=== PATIENT | female | born 1970 | race Caucasian/White ===

== ENCOUNTER 2017-07-13 11:23 | Emergency (ER) | payer SELFPAY ==
[2017-07-13 13:34] LABS: ABS Basophils 0 10^3/ul (0-0.2); ABS Eosinophils 0.2 10^3/ul (0-0.6); ABS Lymphocytes 1.1 10^3/ul (1.0-4.8); ABS Monocytes 0.7 10^3/ul (0-0.8); ABS Nucleated RBC 0 10^3/ul; Eosinophil % 4.5 % (0-6); Hematocrit 27 % (35-47); Hemoglobin 9.3 g/dl (12.0-16.0); Lymphocyte % 21.3 % (25-47); Mean Corpuscular HGB Conc 34 g/dl (31-36); Mean Corpuscular Hemoglobin 34 pg (27-31); Mean Corpuscular Volume 100 fL (80-97); Mean Platelet Volume 7.8 um3 (7.4-10.4); Nucleated Red Blood Cells % 0; Platelet Count 194 10^3/ul (150-450); Red Blood Count 2.73 10^6/ul (4.0-5.4); Red Cell Distribution Width 16 % (10.5-15); White Blood Count 5.1 10^3/ul (3.5-10.8)
[2017-07-13 13:42] LABS: INR 1.17 (0.77-1.02)
[2017-07-13 13:54] LABS: EGFR Non-African American 93.2 (>60)
[2017-07-13] MEDS ORDERED: Ondansetron INJ* 2 MG/ML VIAL IV ONE (14:11)
[2017-07-13] MEDS ORDERED: Morphine INJ* 10 MG/ML 1 ML CARPUJECT IV ONE ×2 (14:11→19:29)
--- NOTE | 2017-07-13 14:17 | RAD ---
HISTORY: Shortness of breath COMPARISONS: None VIEWS: 1: frontal portable view of the chest at 2:02 PM FINDINGS: LINES AND TUBES: None. CARDIOMEDIASTINAL SILHOUETTE: The cardiomediastinal silhouette is normal for portable technique. PLEURA: The costophrenic angles are sharp. No pleural abnormalities are noted. LUNG PARENCHYMA: The lungs are clear. ABDOMEN: The upper abdomen is clear. There is no subphrenic gas. BONES AND SOFT TISSUES: No bone or soft tissue abnormalities are noted. IMPRESSION: NO ACTIVE CARDIOPULMONARY DISEASE.
[2017-07-13] MEDS ORDERED: Ondansetron ODT TAB* 4 MG PO ONE (14:29)
[2017-07-13] MEDS ORDERED: Iohexol 300* (CONTRAST) 10 ML SDV IV ONE (14:37)
[2017-07-13] MEDS ORDERED: Morphine VIAL* 4 MG/ML VIAL (1 ml vial) IV ONE (14:58)
--- NOTE | 2017-07-13 16:26 | RAD ---
CLINICAL HISTORY: Abdominal pain, bloating COMPARISON: None TECHNIQUE: Multiple contiguous axial CT scans were obtained of the abdomen and pelvis after the administration of intravenous contrast. Coronal and sagittal multiplanar reformations are submitted for review. Oral contrast was administered. Delayed images were obtained through the abdomen and pelvis. FINDINGS: LUNG BASES: The lung bases are clear. LIVER: The liver is diffusely low in attenuation compared to the spleen. There are no focal hepatic parenchymal masses. The liver measures 20 cm in long axis. BILE DUCTS: There is no intrahepatic or extrahepatic biliary dilatation. GALLBLADDER: The gallbladder is normal, without pericholecystic inflammatory change. PANCREAS: The pancreas is normal, without mass or ductal dilatation. SPLEEN: The spleen measures 14 cm in long axis and 6.8 cm in thickness. UPPER GI TRACT: Evaluation of the gastrointestinal tract is limited by incomplete gastric distention. The upper GI tract is unremarkable. SMALL BOWEL AND MESENTERY: The small bowel is normal in contour, course, and caliber. There is no obstruction or dilatation. COLON: The colon is normal in contour, course, caliber. There is no pericolonic inflammatory change. ADRENALS: Normal bilaterally. KIDNEYS: The kidneys are normal in shape, size, contour, and axis. There is no hydronephrosis or nephrolithiasis. BLADDER: The bladder is smooth in contour. PELVIC ORGANS: There is prominence of the vasculature along the left broad ligament with enlargement of the ovarian vein on the left. AORTA: The aorta is normal. IVC: Unremarkable LYMPH NODES: There is no lymphadenopathy by size criteria. ABDOMINAL WALL: There is no evidence for abdominal wall hernia. BONES AND SOFT TISSUES: Unremarkable OTHER: There is a moderate to large amount of ascites. IMPRESSION: 1. ASCITES. 2. HEPATOMEGALY WITH FATTY INFILTRATION OF THE LIVER. 3. SPLENOMEGALY. 4. PROMINENCE OF THE VASCULATURE ALONG THE LEFT UTERUS WITH ENLARGEMENT OF THE LEFT OVARIAN VEIN. THIS IS NONSPECIFIC BUT CAN BE ASSOCIATED WITH PELVIC CONGESTION SYNDROME IN THE CORRECT CLINICAL SETTING.
[2017-07-13] MEDS ORDERED: Potassium Chlor TAB* 20 MEQ TAB.ER PO ONE (17:17)
[2017-07-13] MEDS ORDERED: Lidocaine 1%* 5 ML VIAL INJ ONE (18:07)
--- NOTE | 2017-07-13 19:47 | ED ---
Connie Mcbride Gabriel, scribed for Sj Mirza MD on 07/13/17 at 1256 . Shortness of Breath - HPI Summary HPI Summary: This patient is a 47 year old F presenting to [facility] with a chief complaint of SOB that was worse today. Pt states she has ascites and has had around 5L of fluid drained off her ABD 4 times since she was recently diagnosed. Her last drainage was the 04 of july, since then it has built up and she believes the fluid build up is putting pressure on her lungs making it hard to breath. Patient reports LE edema and constipation. Patient denies fever, n/v, and white stool. NKDA. Hx of cirrhosis. - History of Current Complaint Chief Complaint: EDShortnessOfBreath Time Seen by Provider: 07/13/17 12:48 Hx Obtained From: Patient Onset/Duration: Still Present Timing: Constant Current Severity: Mild Dyspnea At: Exertion Associated Signs & Symptoms: Negative - fever, n/v, and white stool. - Allergy/Home Medications Allergies/Adverse Reactions: Allergies Allergy/AdvReac Type Severity Reaction Status Date / Time No Known Allergies Allergy Verified 07/13/17 11:29 Home Medications: Home Medications Albuterol HFA INHALER* [Ventolin HFA Inhaler*] 1 - 2 puff INH Q4H PRN 07/13/17 [ History Confirmed 07/13/17] Cyanocobalamin/Folic AC/Vit B6 [Foltabs 800 800-10-115 Mcg-mg-Mcg] 1 tab PO DAILY 07/13/17 [History Confirmed 07/13/17] Furosemide TAB* [Lasix TAB*] 20 mg PO DAILY 07/13/17 [History Confirmed 07/13/17 ] LaCOSAMide TAB* [VimPAT] 200 mg PO BID 07/13/17 [History Confirmed 07/13/17] Levetiracetam XR TAB(NF) [Keppra XR TAB(NF)] 1,500 mg PO BID 07/13/17 [History Confirmed 07/13/17] Potassium Chlor TAB* [Klor Con ER TAB*] 20 meq PO DAILY 07/13/17 [History Confirmed 07/13/17] Senna/Docusate (NF) [Sennokot-S] 1 tab PO DAILY 07/13/17 [History Confirmed 05/28] Spironolactone TAB* [Aldactone TAB*] 50 mg PO DAILY 07/13/17 [History Confirmed 07/13/17] Thiamine TAB* [Vitamin B-1 TAB*] 100 mg PO DAILY 07/13/17 [History Confirmed 05/28] PMH/Surg Hx/FS Hx/Imm Hx Endocrine/Hematology History: Denies: Hx Blood Disorders, Hx Bone Marrow Disease Cardiovascular History: Denies: Hx Angina GI History: Reports: Hx Cirrhosis, Other GI Disorders - ascites Neurological History: Reports: Hx Seizures Denies: Hx CVA Infectious Disease History: No Infectious Disease History: Denies: Traveled Outside the [place] in Last 30 Days - Family History Known Family History: Positive: Seizure Disorder - Social History Lives: With Family Alcohol Use: None Alcohol Amount: last drink 04/30 Substance Use Type: Reports: None Smoking Status (MU): Light Every Day Tobacco Smoker Review of Systems Positive: Shortness Of Breath Positive: Abdominal Pain - and distension , Other - constipation Positive: Edema All Other Systems Reviewed And Are Negative: Yes Physical Exam - Summary Physical Exam Summary: General: well-appearing, no pain distress Skin: warm, color reflects adequate perfusion, dry Head: normal Eyes: EOMI, CHI ENT: normal Neck: supple, nontender Respiratory: CTA, breath sounds present Cardiovascular: RRR Abdomen: distended and diffusely tender, more on the left Bowel: present Musculoskeletal: normal, strength/ROM intact Neurological: normal, sensory/motor intact, A&O x3 Psychological: affect/mood appropriate Triage Information Reviewed: Yes Vital Signs On Initial Exam: Initial Vitals Temp Pulse Resp BP Pulse Ox 98.5 F 84 16 107/77 100 07/13/17 11:26 07/13/17 11:26 07/13/17 11:26 07/13/17 11:26 07/13/17 11:26 Vital Signs Reviewed: Yes Diagnostics - Vital Signs Vital Signs Temp Pulse Resp BP Pulse Ox 07/13/17 12:16 76 121/77 07/13/17 11:26 98.5 F 84 16 107/77 100 - Laboratory Lab Results: Lab Results 07/13/17 07/13/17 07/13/17 Range/Units 13:26 13:26 13:26 WBC 5.1 (3.5-10.8) 10^3/ul RBC 2.73 L (4.0-5.4) 10^6/ul Hgb 9.3 L (12.0-16.0) g/dl Hct 27 L (35-47) % MCV 100 H (80-97) fL MCH 34 H (27-31) pg MCHC 34 (31-36) g/dl RDW 16 H (10.5-15) % Plt Count 194 (150-450) 10^3/ul MPV 7.8 (7.4-10.4) um3 Neut % (Auto) 59.5 (38-83) % Lymph % (Auto) 21.3 L (25-47) % Fisher % (Auto) 14.0 H (0-7) % Eos % (Auto) 4.5 (0-6) % Baso % (Auto) 0.7 (0-2) % Absolute Neuts (auto) 3.0 (1.5-7.7) 10^3/ul Absolute Lymphs (auto) 1.1 (1.0-4.8) 10^3/ul Absolute Monos (auto) 0.7 (0-0.8) 10^3/ul Absolute Eos (auto) 0.2 (0-0.6) 10^3/ul Absolute Basos (auto) 0 (0-0.2) 10^3/ul Absolute Nucleated RBC 0 10^3/ul Nucleated RBC % 0 INR (Anticoag Therapy) 1.17 H (0.77-1.02) APTT 33.0 (26.0-36.3) seconds Sodium 138 L (139-145) mmol/L Potassium 2.9 L (3.5-5.0) mmol/L Chloride 100 L (101-111) mmol/L Carbon Dioxide 32 (22-32) mmol/L Anion Gap 6 (2-11) mmol/L BUN 9 (6-24) mg/dL Creatinine 0.68 (0.51-0.95) mg/dL Est GFR ( Amer) 119.8 (>60) Est GFR (Non-Af Amer) 93.2 (>60) BUN/Creatinine Ratio 13.2 (8-20) Glucose 105 H (70-100) mg/dL Lactic Acid (0.5-2.0) mmol/L Calcium 8.7 (8.6-10.3) mg/dL Magnesium 1.8 L (1.9-2.7) mg/dL Total Bilirubin 1.60 H (0.2-1.0) mg/dL AST 25 (13-39) U/L ALT 10 (7-52) U/L Alkaline Phosphatase 80 (34-104) U/L Ammonia (16-53) mcmol/L Total Creatine Kinase 17 (10-223) U/L CK-MB (CK-2) 0.6 (0.6-6.3) ng/mL Troponin I 0.00 (<0.04) ng/mL C-Reactive Protein 26.47 H (< 5.00) mg/L B-Natriuretic Peptide ( - 100) pg/mL Total Protein 5.8 L (6.4-8.9) g/dL Albumin 2.4 L (3.2-5.2) g/dL Globulin 3.4 (2-4) g/dL Albumin/Globulin Ratio 0.7 L (1-3) Lipase 72 (11.0-82.0) U/L Beta HCG, Quant < 0.60 mIU/mL 07/13/17 07/13/17 Range/Units 13:26 13:26 WBC (3.5-10.8) 10^3/ul RBC (4.0-5.4) 10^6/ul Hgb (12.0-16.0) g/dl Hct (35-47) % MCV (80-97) fL MCH (27-31) pg MCHC (31-36) g/dl RDW (10.5-15) % Plt Count (150-450) 10^3/ul MPV (7.4-10.4) um3 Neut % (Auto) (38-83) % Lymph % (Auto) (25-47) % Fisher % (Auto) (0-7) % Eos % (Auto) (0-6) % Baso % (Auto) (0-2) % Absolute Neuts (auto) (1.5-7.7) 10^3/ul Absolute Lymphs (auto) (1.0-4.8) 10^3/ul Absolute Monos (auto) (0-0.8) 10^3/ul Absolute Eos (auto) (0-0.6) 10^3/ul Absolute Basos (auto) (0-0.2) 10^3/ul Absolute Nucleated RBC 10^3/ul Nucleated RBC % INR (Anticoag Therapy) (0.77-1.02) APTT (26.0-36.3) seconds Sodium (139-145) mmol/L Potassium (3.5-5.0) mmol/L Chloride (101-111) mmol/L Carbon Dioxide (22-32) mmol/L Anion Gap (2-11) mmol/L BUN (6-24) mg/dL Creatinine (0.51-0.95) mg/dL Est GFR ( Amer) (>60) Est GFR (Non-Af Amer) (>60) BUN/Creatinine Ratio (8-20) Glucose (70-100) mg/dL Lactic Acid 1.1 (0.5-2.0) mmol/L Calcium (8.6-10.3) mg/dL Magnesium (1.9-2.7) mg/dL Total Bilirubin (0.2-1.0) mg/dL AST (13-39) U/L ALT (7-52) U/L Alkaline Phosphatase (34-104) U/L Ammonia 28 (16-53) mcmol/L Total Creatine Kinase (10-223) U/L CK-MB (CK-2) (0.6-6.3) ng/mL Troponin I (<0.04) ng/mL C-Reactive Protein (< 5.00) mg/L B-Natriuretic Peptide 143 H ( - 100) pg/mL Total Protein (6.4-8.9) g/dL Albumin (3.2-5.2) g/dL Globulin (2-4) g/dL Albumin/Globulin Ratio (1-3) Lipase (11.0-82.0) U/L Beta HCG, Quant mIU/mL Result Diagrams: 07/13/17 13:26 07/13/17 13:26 Lab Statement: Any lab studies that have been ordered have been reviewed, and results considered in the medical decision making process. - Radiology CXR Radiology Interpretation Completed By: Radiologist - NO ACTIVE CARDIOPULMONARY DISEASE. ED physician has reviewed this radiology report. - CT CT ABD/Pelvis CT Interpretation Completed By: Radiologist - 1. ASCITES. 2. HEPATOMEGALY WITH FATTY INFILTRATION OF THE LIVER. 3. SPLENOMEGALY. 4. PROMINENCE OF THE VASCULATURE ALONG THE LEFT UTERUS WITH ENLARGEMENT OF THE LEFT OVARIAN VEIN. THIS IS NONSPECIFIC BUT CAN BE ASSOCIATED WITH PELVIC CONGESTION SYNDROME IN THE CORRECT CLINICAL SETTING. ED physician has reviewed this radiology report. - EKG 1349 Cardiac Rate: NL EKG Rhythm: Sinus Rhythm - at [address] Segment: Normal Ectopy: None EKG Interpretation: low voltage Course/Dx - Course Course Of Treatment: BOTH DR CERON, SURGERY, AND DR HYLTON, HOSPITALIST, SAW THE PATIENT IN THE ED. DR CERON PERFORMED PARACENTESIS. THE PATIENT IS FROM [place] AND PLANS ON STAYING IN THE AREA UNTIL SEPTEMBER. PER DR HYLTON, WILL CONTINUE THE LASIX 20MG QD AND SPIRONOLACTONE 50MG QD. F/U WITH PMD, GI AND SURGERY; RETURN IF WORSE. CRITICAL CARE TIME LESS THAN 30 MINUTES. - Diagnoses Provider Diagnoses: Ascites Discharge - Sign-Out/Discharge Documenting (check all that apply): Discharge/Admit/Transfer - Discharge Plan Condition: Stable Disposition: HOME Prescriptions: Furosemide TAB* [Lasix TAB*] 20 mg PO DAILY #30 tab oxyCODONE TAB* [Roxycodone TAB 5 mg*] 5 mg PO Q6H PRN #20 tab MDD 4 PRN Reason: Pain Spironolactone TAB* [Aldactone TAB 25 MG*] 50 mg PO DAILY #60 tab Patient Education Materials: Ascites (ED), Paracentesis (DC) Referrals: [facility] [Outside] [facility] [Provider Group] Tulio Ceron MD [Medical Doctor] - Additional Instructions: FOLLOW UP WITH YOUR PRIMARY CARE DOCTOR, GASTROENTEROLOGY AND DR CERON, SURGERY. RETURN TO THE EMERGENCY DEPARTMENT FOR ANY WORSENING OF YOUR CONDITION OR QUESTIONS OR CONCERNS. - Billing Disposition and Condition Condition: STABLE Disposition: HOME Consult Consult: We discussed patient care with Dr. Ceron and they will come and consult on the patient. We discussed patient care with Dr. Hylton and they have agreed to come and see the patient The documentation as recorded by the Connie jacob Gabriel accurately reflects the service I personally performed and the decisions made by me, Sj Mirza MD.
[2017-07-13 19:52] VITALS: BP 109/73
--- NOTE | 2017-07-14 01:56 | CONS ---
CONSULTATION NOTE: DATE OF CONSULT: 07/13/17 - EMERGENCY DEPT CONSULTING PROVIDER: Jaswinder Hylton MD REQUESTING PHYSICIAN: Dr. Mirza from Emergency Room. REASON FOR CONSULT: Evaluation and management of alcoholic cirrhosis with ascites. The patient receiving biweekly paracentesis. HISTORY OF PRESENT ILLNESS: Melania Giron is a 47-year-old female with past medical history of seizure disorder, alcoholism and recent diagnosis of decompensated cirrhosis requiring paracenteses every 2 weeks for the last few months. She started drinking at age 28 and eventually started to drink up to 12 beers or the equivalent wine each day and then for the last year has been drinking a fifth of vodka daily until last drink was 04/27/17 around the time of her decompensated cirrhosis diagnosis back home in [place]. She at that time was admitted to the hospital, had several diagnostic tests for which she cannot recall the details of. She has not yet followed up with a event marketing specialist back in [place] as she has had no insurance and was looking for a event marketing specialist that would accept sliding scale payment. The patient has been visiting family for the last week and intends to stay here until about September. She has developed progressive distention in her abdomen resulting in increased shortness of breath. She denies any episodes of fevers, chills, confusion. She is requesting to have paracentesis of the fluid to relieve her ascites. PAST MEDICAL HISTORY: Seizure disorder, alcoholism, alcoholic cirrhosis. MEDICATIONS: Include: 1. Vimpat 200 mg p.o. b.i.d. 2. Thiamine tab 100 mg p.o. daily. 3. Spironolactone 50 mg p.o. daily. 4. Potassium chloride 20 mEq p.o. daily. 5. Lasix 20 mg p.o. daily. 6. Albuterol inhaler 1 to 2 puffs inhaled q.4 hours p.r.n. 7. Senna. 8. Docusate 1 tab p.o. daily. 9. Keppra 1500 mg p.o. b.i.d. 10. Folic acid, cyanocobalamin and vitamin B6 one tab p.o. daily. 11. Oxycodone 5 mg p.o. q.6 hours p.r.n. ALLERGIES: No known drug allergies. SOCIAL HISTORY: The patient drank alcohol between the age 28 up until 04/27/17 on average about 12 beers a day versus equivalent in wine, then progressed to a sip of vodka not only for the last year or so until last drink was 04/27/17 around her diagnosis of alcoholic cirrhosis. REVIEW OF SYSTEMS: The patient denies any chest pressure, fevers, chills, confusion, gait instability. PHYSICAL EXAM: General Appearance: No acute distress. Vital Signs: Temperature 98.0, heart rate 83, respiratory rate 16 to 21, satting 96% to 99% on room air, blood pressure 109/73. HEENT: Normocephalic, atraumatic. Pupils are equally round and reactive to light. No scleral icterus. Neck: Supple. Pulmonary: Clear to auscultation bilaterally with no wheezing, rales or rhonchi. Cardiovascular: Regular rate and rhythm. No murmurs, rubs or gallops. Abdomen: Distended with positive fluid wave, slightly tender in the epigastric and left upper quadrant. Extremities: Warm, well perfused. 1+ edema bilaterally. Moving all extremities. Sensation intact. DIAGNOSTIC STUDIES/LAB DATA: White count 5.1, hemoglobin 9.3, hematocrit 27, platelets 194, INR 1.17. Sodium 138, potassium 2.9, chloride 100, carbon dioxide 32, BUN 9, creatinine 0.68, glucose 105, lactic acid 1.1, magnesium 1.8 , total bili 1.6, AST 25, ALT 10, alk phos 80, ammonia 28, troponin 0.0, CRP 26 , BNP 143, albumin 2.4, lipase 72, beta hCG less than 0.60. Imaging: CT abdomen and pelvis with IV contrast demonstrated ascites, hepatomegaly with fatty infiltration of the liver, splenomegaly, prominence of the vascular along the left uterus with enlargement of the left ovarian vein. This was not specific, but can be associated with pelvic congestion syndrome in the correct clinical setting. Chest x-ray: No acute pulmonary process. EKG: Normal sinus rhythm, QTC prolongation at 587, low voltage, no ST elevations or depressions. Normal axis. ASSESSMENT AND PLAN: Melania Giron is a 47-year-old female with past medical history of seizure disorder, alcoholism and alcoholic cirrhosis. Over the last 2 months, she has been getting biweekly paracentesis and recently is visiting the area for the next approximately 10 weeks, as family members have school graduations in the area. She reports she has not been fully evaluated by a event marketing specialist and it would be helpful to have that done as an outpatient. Her MELD-Na score is 11 with less than 2% estimated 90-day mortality. The patient has a Child-Blake class B with 9 points. The patient is not demonstrating any signs of hepatic encephalopathy, is without leukocytosis, fevers, or confusion. It is reasonable to have a paracentesis done here in the emergency room or tomorrow with Dr. Salvador at the hospital and Dr. Salvador has offered his business card and the patient may need to intermittently get such paracentesis while she is here visiting. She has been on the Lasix and spironolactone only since the last 10 days or so (07/04/17.) It should considered to increase the doses of this; however, I would not do that today in the setting of her just receiving IV contrast with the CT abdomen and pelvis and then having moderate volume paracentesis given the risk of acute kidney injury. I would recommend following up with a primary care provider or event marketing specialist within the next 3 to 5 days. Of course, continued abstinence of alcohol will be critical for her chances for surviving in the next year and the family support in the area will be critical. Nutrition should be emphasized. A low-sodium diet is recommended. She, of note, also was hypokalemic and got 60 mg p.o. potassium here in the emergency room and will continue her home supplementation and spironolactone. Thank you for this interesting consult. [id number]/[facility] #: [id number] HERO
--- NOTE | 2017-07-14 12:24 | OP ---
CC: Dr. Tulio Salvador OPERATIVE REPORT: DATE OF OPERATION: 07/13/17 DATE OF : 72 SURGEON: Tulio Salvador MD PRE-OP DIAGNOSIS: Ascites. POST-OP DIAGNOSIS: Ascites. OPERATIVE PROCEDURE: Sonographically-guided paracentesis. INDICATIONS: The patient is a 47-year-old female, who is visiting here from [place] for a couple of months. She has a history of cirrhosis and frequent recurrent ascites. She manages with a physician down at [place], who has her on chronic diuresis but despite that she has a paracentesis about every 2 weeks. She states that it has been over 2 weeks since it was done and she is starting to feel some dyspnea and increasing distention. She was seen in consultation by Dr. Hylton of the hospitalist service, who felt that she was in need paracentesis in that there was no indication for admission or for any additional medical therapy. Therefore, I was consulted about performing a paracentesis. I discussed this with the patient and she understands the procedure and is agreeable to it and therefore a sonographic-guided paracentesis was carried out. DESCRIPTION OF PROCEDURE: Ultrasound at the bedside was carried out on the left and right side. There seemed to be a reasonable pocket of fluid far lateral on the right side. However, by my estimation, there was not a huge amount of fluid in the abdomen. However, it was felt reasonable to perform paracentesis to ascertain the clinical benefit. Therefore, the abdomen was marked on the right side using the ultrasound, and then the area was prepped with antiseptic and draped in a sterile fashion. Local infiltrative anesthesia was administered with 1% plain lidocaine and skinny senior contracts manager needle was used to identify the ascites fluid. The paracentesis catheter was then inserted and about 2500 mL of clear yellow fluid was forthcoming. The drainage quit at that point and despite manipulation of the abdomen and manipulation of the catheter, no substantial increased flow was obtained. Therefore, the catheter was removed and a bandage was placed. She will be discharged home per the hospitalist and they will arrange any necessary change in medications or followup. However, she does understand that she can call me at anytime if she has questions or concerns. [id number]/[facility] #: [id number] MTDD
== END 2017-07-13 20:10 | disposition home or self-care (01) ==
LOC: ED 11:23
DX: K70.31 Alcoholic cirrhosis of liver with ascites (principal); Z72.0 Tobacco use; G40.909 Epilepsy, unspecified, not intractable, without status epilepticus; F10.20 Alcohol dependence, uncomplicated
CPT/HCPCS: 36415; 71045; 74177; 80053; 80177; 80299; 82140; 82550; 82553; 83605; 83690; 83735; 83880; 84484; 84702; 85025; 85610; 85730; 86140; 93005; 96374; 96375; 96376; 99284; A9270-GY; J2270; Q9967